=== PATIENT | female | born 1935 | race African-American/Black ===

== ENCOUNTER 2018-02-13 08:01 | Day surgery (SDC) | payer MEDICARE, MEDICAID ==
[2018-02-12 14:52] VITALS: BMI 29.2
[2018-02-13] MEDS ORDERED: Midazolam HCl 2 mg/2 ml Vial ONE (10:11)
[2018-02-13] MEDS ORDERED: PROPOFOL 200 MG/20 ML VIAL ONE (15:14)
[2018-02-13] MEDS ORDERED: Lidocaine 1% PF 5 ML VIAL ONE (15:14)
--- NOTE | 2018-02-13 19:25 | OP ---
PROCEDURES PERFORMED: Esophagogastroduodenoscopy and colonoscopy. PREPROCEDURE DIAGNOSES: 1. Episodes of black stool, resolved. 2. Anemia, recent drop in hemoglobin from around 12-9.3 in November. More recently, hemoglobin 10.9 on 01/28/2018. Reviewing labs at [place], October through December hemoglobin averaging between 10 and 11. 3. History of right-sided heart failure with some nodularity of the liver, it is felt related to rig ht heart failure. Her albumin is 3. AFP 2, B12 and folate were normal. Iron was 39, TIBC 319 and f erritin 214. 4. History of also epigastric pain. Recent ultrasound showed normal echogenicity of the liver, no f ocal lesions. Normal gallbladder without stones, sludge or thickening, normal common bile duct. She had a CAT scan of abdomen and pelvis 03/2017 less than a year ago showed a nodular liver suggestive of cirrhosis. No vascular or other liver masses. Abdomen was otherwise normal. That report indicat ed she had had no gallbladder. POSTPROCEDURE DIAGNOSES: 1. Esophagogastroduodenoscopy is normal with no evidence of portal gastropathy or varices or finding s to explain anemia or pain. 2. Colonoscopy notable for diverticulosis throughout the colon. She had 5 polyps removed that were between 2 and 5 mm in the cecum, ascending and descending colon. There was a 7 mm polyp semi-peduncu lated in the sigmoid colon which was removed, but not retrieved. RECOMMENDATIONS: 1. Restart anticoagulation in 5 days. 2. Continue PPI therapy. 3. Follow up in office in 2 months. ANESTHESIA: TIVA. PROCEDURE IN DETAIL: After the patient was informed of the risks, benefits, possible complications o f endoscopy including perforation, bleeding, reactions to medication and aspiration, informed consent was obtained. The patient was brought to endoscopy suite where she was prepped and draped in standa rd fashion. Once she was comfortable, a bite block was placed in incisural orifice. The endoscope w as advanced through esophagus, stomach, second and third portion of the duodenum. The esophagus was normal without evidence of varices or inflammation. There are no signs of reflux. The stomach was e ntered and found to be normal in forward and retroflexed views without any evidence of portal gastrop athy, AV malformations or ulcers or erosions. The duodenal bulb was normal. The duodenum was normal to the third portion. There was yellow bile coming from the ampulla. The scope was removed. The patient was turned in the room and rectal exam was performed. The endoscope was advanced through the anal canal to the cecum, which was identified by ileocecal valve and appendiceal orifice. There was diverticulosis throughout the colon. The terminal ileum appeared normal. There was a 5 mm polyp which was flat and the cecum which was removed by hot snare polypectomy. There was 3 mm pedun culated polyp at the ileocecal valve was removed using the hot snare polypectomy and retrieved. Ther e were two diminutive polyps in the ascending colon which was removed and retrieved. There was a 7 m m polyp in the sigmoid colon which was removed, but not able to be retrieved was completely removed. Otherwise, there was diverticulosis coli. Retroflexed views in the rectum were normal. The scope w as removed. The patient tolerated the procedure well with no complications.
== END 2018-02-13 13:30 | disposition home or self-care (01) ==
LOC: SDC 08:01
PROVIDERS: ATTEND Internal Medicine Gastroenterology
PROC: 0DJ08ZZ Inspection of Upper Intestinal Tract, Via Natural or Artificial Opening Endoscopic (ICD-10-PCS; principal; 2018-02-13)
PROC: 0DBN8ZZ Excision of Sigmoid Colon, Via Natural or Artificial Opening Endoscopic (ICD-10-PCS; 2018-02-13)
PROC: 0DBK8ZX Excision of Ascending Colon, Via Natural or Artificial Opening Endoscopic, Diagnostic (ICD-10-PCS; 2018-02-13)
PROC: 0DBC8ZX Excision of Ileocecal Valve, Via Natural or Artificial Opening Endoscopic, Diagnostic (ICD-10-PCS; 2018-02-13)
DX: D12.0 Benign neoplasm of cecum (principal); D12.2 Benign neoplasm of ascending colon; D12.4 Benign neoplasm of descending colon; K63.5 Polyp of colon; K57.30 Diverticulosis of large intestine without perforation or abscess without bleeding; D50.9 Iron deficiency anemia, unspecified; K74.60 Unspecified cirrhosis of liver; I48.91 Unspecified atrial fibrillation; I11.0 Hypertensive heart disease with heart failure; I50.9 Heart failure, unspecified; E03.9 Hypothyroidism, unspecified; E11.9 Type 2 diabetes mellitus without complications; M19.90 Unspecified osteoarthritis, unspecified site; Z87.891 Personal history of nicotine dependence; Z88.0 Allergy status to penicillin; Z88.6 Allergy status to analgesic agent; Z79.82 Long term (current) use of aspirin; Z79.01 Long term (current) use of anticoagulants; Z79.899 Other long term (current) drug therapy
CPT/HCPCS: 36415; 82565; 88305; J2001; J2250; J2704

== ENCOUNTER 2018-09-24 23:11 | Emergency (ER) | payer MEDICARE, MEDICAID ==
[2018-09-24] MEDS ORDERED: Dextrose 50% Abboject 50 ML SYRINGE ONE (23:18)
[2018-09-24] MEDS ORDERED: Sodium Bicarb 50 MEQ/50 ML VIAL ONE (23:29)
[2018-09-24] MEDS ORDERED: Sodium Bicarb 50 MEQ/50 ML Abboject 8.4% SYRINGE ONE (23:29)
[2018-09-24] MEDS ORDERED: Calcium Chloride 1 GM/10 ML Abboject SYRINGE ONE (23:29)
--- NOTE | 2018-09-24 23:31 | RAD ---
SINGLE VIEW CHEST: HISTORY: Chest pain and shortness of breath. COMPARISON: 09/06/2017 FINDINGS: A single view of the chest shows an enlarged cardiomediastinal silhouette. The pacemaker is unchange d in position. There is opacity involving the majority of the right thorax. This likely represents an infiltrate and adjacent pleural effusion. No left-sided infiltrate is seen. IMPRESSION: Right pulmonary infiltrate with moderate adjacent pleural effusion. POS: [facility]
[2018-09-24 23:43] LABS: Base Excess-Venous -5.2 mmol/L (0 (+/- 2.5)); Bicarbonate (HCO3v) 26.2 mmol/L (22.0-29.0); CO2 Tension (PvCO2) 75.2 mmHg (41.0-51.0); Calcium, Ionized 1.07 mmol/L (1.12-1.32); Hemoglobin - Calc 17.8 g/dL (12.0-18.0); Lactate 5.53 mmol/L (0.50-2.20); O2 Tension (PvO2) 47.1 mmHg (35.0-45.0); Potassium 5.2 mmol/L (3.4-4.7); T. Carbon Dioxide 28.5 mmol/L (1.0-85.0); vO2 Saturation-calc 68.3 % (94-98)
[2018-09-25 00:02] LABS: Hemoglobin 10.1 g/dL (12.0-16.0); Mean Corpuscular HGB CONC 29.5 g/dL (32.0-36.0); Mean Corpuscular Hemoglobin 27.9 pg (27.0-31.0); Mean Corpuscular Volume 94.7 fL (78.0-98.0); RBC Distribution Width 17.8 % (11.5-14.5); Red Blood Cell (RBC) Count 3.61 mill/uL (4.20-5.40); White Blood Cell (WBC) Count 10.4 thou/uL (4.8-10.8)
[2018-09-25 00:20] LABS: Band 21 % (5-11); Lymphocytes 2 % (21-51); MDiff Complete? YES; Mean Platelet Volume 10.2 fL (7.4-10.4); Monocytes 6 % (0-10); Neutrophil 71 % (42-75); PLT Morphology Comment Appears Decreased; Platelet Count 76 thou/uL (130-400)
[2018-09-25 00:22] LABS: ALT (SGPT) 10 U/L (8-55); AST (SGOT) 20 U/L (5-34); Albumin 1.5 g/dL (3.4-4.8); Alkaline Phosphatase 155 U/L (40-150); Anion Gap 20 mmol/L (10-20); BUN (Urea Nitrogen) 111 mg/dL (9.8-20.1); Bilirubin, Total 3.7 mg/dL (0.2-1.2); Calc. Creatinine Clearance 0 mL/min (70-130); Calcium 8.6 mg/dL (7.8-10.44); Carbon Dioxide 26 mmol/L (23-31); Chloride 112 mmol/L (98-107); Estimated GFR-MDRD 9; Globulin 3.5 g/dL (2.4-3.5); Glucose 177 mg/dL (83-110); Lipase 94 U/L (8-78); Magnesium 1.7 mg/dL (1.6-2.6); Potassium 5.2 mmol/L (3.5-5.1); Sodium 153 mmol/L (136-145)
[2018-09-25 00:42] LABS: CKMB 2.7 ng/mL (0-6.6)
--- NOTE | 2018-09-28 17:00 | EKG ---
Test Reason : ER INDICATION Blood Pressure : / mmHG Vent. Rate : 070 BPM Atrial Rate : 069 BPM P-R Int : 000 ms QRS Dur : 168 ms QT Int : 492 ms P-R-T Axes : 000 -67 119 degrees QTc Int : 531 ms Electronic ventricular pacemaker Wide complex Confirmed by SEMAJ ADAIR ([id number]), purchasing expeditor ANTONI BERNAL ([id number] on 09/28/2018 5:00:02 PM Referred By: PATRICIA Confirmed By:SEMAJ ADAIR
== END 2018-09-25 00:04 | disposition expired ==
LOC: ERS 23:11
DX: I46.9 Cardiac arrest, cause unspecified (principal); R41.82 Altered mental status, unspecified; I50.9 Heart failure, unspecified; E16.2 Hypoglycemia, unspecified; J18.9 Pneumonia, unspecified organism; E87.2 Acidosis; N17.9 Acute kidney failure, unspecified
CPT/HCPCS: 36415; 36416; 71045; 80053; 82330; 82553; 82803; 83605; 83690; 83735; 84443; 84484; 85025; 87040; 87149; 93005; 96361; 96374; 96375